=== PATIENT | male | born 1940 | race Caucasian/White ===

== ENCOUNTER 2022-01-23 08:04 | Emergency (ER) | payer MEDICARE, OTHER ==
[~2022-01-23] VITALS: Ht 170.2 cm; Wt 129.1 kg
[~2022-01-23 08:04] MED LIST: ALBUTEROL2.5 MG/0.5 INH; HYDROCHLOROTHIA25 MG PO; IBUPROFEN800 MG PO; LEVOTHYROXINE25 MCG PO; LOSARTAN POTAS100 MG PO; MACULAR VITAMI1 EACH PO; MIRAPEX1 MG PO; NIACIN500 M1 PO; OMEPRAZOLE20 MG PO; SALMON OIL 1,01 EACH PO; VITAMIN C500 M5 PO
--- NOTE | 2022-01-24 19:24 | EKG ---
[facility] [address] [place] [address] Signed Normal sinus rhythm Possible Inferior infarct , age undetermined Abnormal ECG No previous ECGs available Confirmed by DANIEL VIERA MD ([id number] on 01/24/2022 7:23:50 PM Electronically Signed By: DANIEL VIERA MD 01/24/221923 PATIENT NAME: ANITA RODRIGUEZ MEJIA Electrocardiogram DATE OF : 44 PHYSICIAN: DANIEL VIERA MD REPORT #: [id number] REPORT IS CONFIDENTIAL AND NOT TO BE RELEASED WITHOUT AUTHORIZATION
== END 2022-01-23 14:48 | disposition other institution, planned readmission (95) ==
LOC: ED 08:04
DX: J10.00 Influenza due to other identified influenza virus with unspecified type of pneumonia (principal); J96.00 Acute respiratory failure, unspecified whether with hypoxia or hypercapnia; Z88.0 Allergy status to penicillin; Z20.822 Contact with and (suspected) exposure to COVID-19
CPT/HCPCS: 36415; 71045; 80053; 83605; 83880; 84484; 85025; 87502; 93005; 93010; 94640; 94660; 96374; 99285-25; A9270; C9803; J1940; U0003